=== PATIENT | female | born 1980 | race Two or more races ===

== ENCOUNTER 2021-10-01 14:44 | Emergency (ER) | payer OTHER ==
[~2021-10-01] VITALS: Ht 162.6 cm; Wt 116.6 kg
[~2021-10-01 14:44] MED LIST: CLINDAMYCIN HC300 MG PO; HYDROCODON-ACE1 EAC8 PO; PROAIR HFA8.5 GM IH; SEPTRA DS TABL1 EACH PO
[2021-10-01] MEDS ORDERED: TRIAMCINOLONE A15 G1 (15:01)
[2021-10-01] MEDS ORDERED: TERBINAFINE15 G1 (15:01)
[2021-10-01] MEDS ORDERED: ACYCLOVIR400 MG PO (16:15)
== END 2021-10-01 16:20 | disposition home or self-care (01) ==
LOC: ED 14:44
DX: L21.0 Seborrhea capitis (principal); E66.9 Obesity, unspecified; J45.909 Unspecified asthma, uncomplicated; F17.200 Nicotine dependence, unspecified, uncomplicated; Z91.013 Allergy to seafood; Z79.899 Other long term (current) drug therapy; Z79.51 Long term (current) use of inhaled steroids
CPT/HCPCS: 99282

== ENCOUNTER 2021-12-16 13:59 | Emergency (ER) | payer OTHER ==
[~2021-12-16] VITALS: Ht 162.6 cm; Wt 116.6 kg
[~2021-12-16 13:59] MED LIST changes: +ACYCLOVIR400 MG PO; +TERBINAFINE15 G1; +TRIAMCINOLONE A15 G1
[2021-12-16] MEDS ORDERED: VITAMIN D250 MCG PO (14:15)
[2021-12-16] MEDS ORDERED: OMEGA 3 1,0001 EACH PO (14:15)
[2021-12-16] MEDS ORDERED: ONDANSETRON ODT4 MG PO (16:38)
== END 2021-12-16 16:50 | disposition home or self-care (01) ==
LOC: ED 13:59
DX: R11.2 Nausea with vomiting, unspecified (principal); R19.7 Diarrhea, unspecified; E66.9 Obesity, unspecified; J45.909 Unspecified asthma, uncomplicated; F17.200 Nicotine dependence, unspecified, uncomplicated; Z91.013 Allergy to seafood; Z79.899 Other long term (current) drug therapy
CPT/HCPCS: 36415; 80053; 85025; 96374; 99284-25; A9270; J2405; J7030

== ENCOUNTER 2024-05-23 07:41 | Emergency (ER) | payer OTHER ==
[~2024-05-23] VITALS: Ht 162.6 cm; Wt 104.0 kg
[~2024-05-23 07:41] MED LIST changes: +OMEGA 3 1,0001 EACH PO; +ONDANSETRON ODT4 MG PO; +VITAMIN D250 MCG PO
[2024-05-23] MEDS ORDERED: PRENATAL VITAM1 EAC5 (07:54)
[2024-05-23] MEDS ORDERED: DESOGESTR-ETH1 EACH PO (07:54)
[2024-05-23] MEDS ORDERED: ACETAMINOPHEN 500 MG TAB PO ONE (08:15)
[2024-05-23] MEDS ORDERED: IBUPROFEN 600 MG TAB PO ONE (08:15)
[2024-05-23] MEDS ORDERED: DOXYCYCLINE HYCLATE 100 MG CAP PO ONE (08:15)
[2024-05-23 09:02] LABS: INFLUENZA B NAA NEGATIVE (NEGATIVE); RESPIRATORY SYNCYTIAL VIR NAA NEGATIVE (NEGATIVE)
[2024-05-23] MEDS ORDERED: DOXYCYCLINE HY100 MG PO (09:15)
[2024-05-23 09:24] VITALS: BP 122/81
== END 2024-05-23 09:24 | disposition home or self-care (01) ==
LOC: ED 07:41
PROVIDERS: Emergency Medicine
DX: U07.1 COVID-19 (principal); J34.0 Abscess, furuncle and carbuncle of nose; J45.909 Unspecified asthma, uncomplicated; F17.200 Nicotine dependence, unspecified, uncomplicated; E66.9 Obesity, unspecified; Z68.39 Body mass index [BMI] 39.0-39.9, adult; Z91.013 Allergy to seafood; Z79.899 Other long term (current) drug therapy
CPT/HCPCS: 87502; 99283; A9270; U0002

== ENCOUNTER 2024-10-08 11:06 | Emergency (ER) | payer OTHER ==
[~2024-10-08] VITALS: Ht 162.6 cm; Wt 111.6 kg
[~2024-10-08 11:06] MED LIST changes: +DESOGESTR-ETH1 EACH PO; +DOXYCYCLINE HY100 MG PO; +PRENATAL VITAM1 EAC5
[2024-10-08] MEDS ORDERED: SODIUM CHLORIDE 0.9% 1,000 ML IV ONE (11:30)
[2024-10-08] MEDS ORDERED: PANTOPRAZOLE SODIUM 40 MG/10 ML VIAL IV ONE (11:30)
[2024-10-08] MEDS ORDERED: MORPHINE SULFATE 4 MG/ML VIAL IV ONE (11:30)
[2024-10-08] MEDS ORDERED: ondansetron HCL 4 MG/2 ML VIAL IV ONE (11:30)
[2024-10-08 12:39] LABS: ALBUMIN 2.9 g/dL (3.4-5.0); ALBUMIN/GLOBULIN RATIO 0.74 (1.1-2.4); BILIRUBIN, TOTAL 0.4 mg/dL (0.2-1.0); BUN/CREATININE RATIO 17.39 (6.0-28.6); CALCIUM 8.8 mg/dL (8.5-10.1); CREATININE, SERUM 0.69 mg/dL (0.55-1.02); PROTEIN, TOTAL 6.8 g/dL (6.4-8.2)
[2024-10-08 12:59] LABS: BASOPHILS 0.4 % (0-2); EOSINOPHILS 2.1 % (0-6); HEMATOCRIT 38.3 % (35.0-50.0); HEMOGLOBIN 13.3 g/dL (12.0-18.0); LYMPHOCYTES 28.9 % (24-44); MCH 29.4 (27-36); MCHC 34.8 g/dl (30-36); MCV 84.3 fl (81-99); MONOCYTES 6.9 % (0-12); NEUTROPHILS 61.7 % (39-80); PLATELET COUNT 232 K/uL (140-440); RBC 4.54 M/ul (4.3-5.7); RDW 13.2 (10.5-15.0)
[2024-10-08 13:14] LABS: LACTIC ACID, BLOOD 1.5 mmol/L (0.4-2.0)
[2024-10-08 13:33] LABS: BILIRUBIN, URINE NEGATIVE (negative); BLOOD/HGB, URINE NEGATIVE (Negative); KETONE, URINE NEGATIVE (Negative); LEUK ESTERASE, URINE NEGATIVE (negative); NITRITE, URINE NEGATIVE (negative); PH, URINE 5.5 (5-7)
[2024-10-08] MEDS ORDERED: PROTONIX40 M1 PO (15:04)
[2024-10-08] MEDS ORDERED: ONDANSETRON ODT8 MG PO (15:05)
[2024-10-08 15:22] VITALS: BP 158/94
== END 2024-10-08 15:22 | disposition home or self-care (01) ==
LOC: ED 11:06
PROVIDERS: Emergency Medicine
DX: R10.12 Left upper quadrant pain (principal); K63.89 Other specified diseases of intestine; I10 Essential (primary) hypertension; J45.909 Unspecified asthma, uncomplicated; F17.200 Nicotine dependence, unspecified, uncomplicated; Z91.013 Allergy to seafood; Z79.899 Other long term (current) drug therapy
CPT/HCPCS: 36415; 74177; 80053; 81003; 83605; 83690; 84703; 85025; 96375; 99284-25; J2405; J2470; J7030; Q9967

== ENCOUNTER 2024-12-08 00:40 | Emergency (ER) | payer BC, OTHER ==
[~2024-12-08] VITALS: Ht 162.6 cm; Wt 125.0 kg
[~2024-12-08 00:40] MED LIST changes: +ONDANSETRON ODT8 MG PO; +PROTONIX40 M1 PO
[2024-12-08] MEDS ORDERED: MECLIZINE HCL 25 MG TAB PO ONE (01:00)
[2024-12-08] MEDS ORDERED: PROCHLORPERAZINE EDISYLATE 10 MG/2 ML VIAL IV ONE (01:00)
[2024-12-08 01:13] LABS: BASOPHILS 0.5 % (0-2); EOSINOPHILS 2.5 % (0-6); HEMATOCRIT 39.9 % (35.0-50.0); HEMOGLOBIN 13.9 g/dL (12.0-18.0); LYMPHOCYTES 42.2 % (24-44); MCH 29.1 (27-36); MCHC 34.8 g/dl (30-36); MCV 83.8 fl (81-99); MONOCYTES 7.9 % (0-12); NEUTROPHILS 46.9 % (39-80); PLATELET COUNT 204 K/uL (140-440); RBC 4.76 M/ul (4.3-5.7); RDW 13.8 (10.5-15.0)
[2024-12-08 01:29] LABS: ALBUMIN 2.9 g/dL (3.4-5.0); ALBUMIN/GLOBULIN RATIO 0.73 (1.1-2.4); ANION GAP 13.6 (7-21); BILIRUBIN, TOTAL 0.2 mg/dL (0.2-1.0); BUN/CREATININE RATIO 15.58 (6.0-28.6); CALCIUM 8.4 mg/dL (8.5-10.1); CREATININE, SERUM 0.77 mg/dL (0.55-1.02); POTASSIUM 3.6 mmol/L (3.5-5.1); PROTEIN, TOTAL 6.9 g/dL (6.4-8.2)
[2024-12-08] MEDS ORDERED: PREDNISONE20 MG PO (03:00)
[2024-12-08] MEDS ORDERED: MECLIZINE HCL25 MG PO (03:00)
[2024-12-08] MEDS ORDERED: LEVOFLOXACIN750 MG PO (03:00)
[2024-12-08] MEDS ORDERED: ONDANSETRON ODT8 MG PO (03:01)
[2024-12-08 03:58] VITALS: BP 123/89
[2024-12-08] MEDS ORDERED: levoFLOXacin 750 MG TAB PO ONE (04:00)
[2024-12-08] MEDS ORDERED: PROMETHAZINE HCL 25 MG HOME.PACK PO ONE (04:00)
== END 2024-12-08 03:58 | disposition home or self-care (01) ==
LOC: ED 00:40
PROVIDERS: Family Medicine
DX: J01.90 Acute sinusitis, unspecified (principal); B96.89 Other specified bacterial agents as the cause of diseases classified elsewhere; R42 Dizziness and giddiness; J45.909 Unspecified asthma, uncomplicated; F17.200 Nicotine dependence, unspecified, uncomplicated; Z91.013 Allergy to seafood
CPT/HCPCS: 36415; 70450; 70496; 70498; 80053; 83735; 84703; 85025; 99284-25; A9270; J0780; Q9967; U0002